=== PATIENT | female | born 1995 | race African-American/Black ===

== ENCOUNTER 2021-05-14 17:46 | Emergency (ER) | payer MEDICAID | END 2021-05-14 18:29 | disposition left against medical advice (07) | LOC: ER 17:46 | DX: Z53.21 Procedure and treatment not carried out due to patient leaving prior to being seen by health care provider (principal) ==

== ENCOUNTER 2023-08-08 00:49 | Emergency (ER) | payer MEDICAID, OTHER ==
[~2023-08-08] VITALS: Ht 165.1 cm; Wt 119.0 kg
[2023-08-08 00:49] VITALS: O2SAT 100
[2023-08-08 01:23] LABS: BASOPHILS % 0.4 % (0.0-2.0); EOSINOPHILS % 2.5 % (0.0-5.0); HEMATOCRIT. 28.8 % (36.0-48.0); HEMOGLOBIN. 9.7 g/dL (12.0-16.0); LYMPHOCYTES % 25.6 % (20.0-50.0); MEAN CORPUSCULAR HEMOGLOBIN 31.2 pg (28.0-32.0); MEAN CORPUSCULAR HGB CONC 33.6 g/dL (31.0-37.0); MEAN CORPUSCULAR VOLUME 92.9 fL (81.0-99.0); MEAN PLATELET VOLUME 10.9 fl (7.4-10.4); NEUTROPHILS % 64.5 % (40.0-76.0); PLATELET 143 x1000/uL (130-400); RED CELL DISTRIBUTION WIDTH 13.8 % (11.6-14.6); WHITE BLOOD COUNT 8.5 x1000/uL (4.5-11.0)
[2023-08-08 01:31] LABS: CHLORIDE 109 mEq/L (98-107); INDEX HEMOLYSI 1 (1-3); INDEX ICTERIC 1 (1-4); INDEX LIPEMIC 1 (1-3); POTASSIUM 3.9 mEq/L (3.5-5.1); SODIUM 138 mEq/L (136-145)
[2023-08-08 01:38] LABS: ALANINE AMINOTRANSFERASE 113 IU/L (13-61); ALBUMIN 2.7 g/dL (3.4-5.0); ASPARTATE AMINOTRANSFERASE 71 IU/L (15-37); BILIRUBIN TOTAL 0.2 mg/dL (0.1-1.0); CALCIUM 8.6 mg/dL (8.5-10.1); CARBON DIOXIDE 23 mEq/L (21-32); CREATININE 0.8 mg/dL (0.6-1.3); GLUCOSE 86 mg/dL (70-105); PROTEIN TOTAL 6.6 g/dL (6.0-8.3); UREA NITROGEN BLOOD 7 mg/dL (7-21)
[2023-08-08 02:11] VITALS: BP 104/66; PULSE 69; RESP 22; TEMP 98.3
== END 2023-08-08 02:41 | disposition home or self-care (01) ==
LOC: ER 00:49
DX: Z33.1 Pregnant state, incidental (principal); Z3A.35 35 weeks gestation of pregnancy
CPT/HCPCS: 36415; 76805; 76818; 80053; 85025; 86850; 86900; 99284